=== PATIENT | female | born 1970 | race African-American/Black ===

== ENCOUNTER 2021-12-12 10:11 | Outpatient (CLI) | payer OTHER, SELFPAY ==
--- NOTE | ~2021-12-12 | US_ITS ---
EXAMINATION: US right upper quadrant DATE: 12/12/2021 11:14 INDICATION: Right upper quadrant abdominal pain TECHNIQUE: Multiple grayscale and Doppler ultrasound images of the abdomen were obtained. COMPARISON: Right upper quadrant ultrasound dated 02/02/[address] dated 06/05/2020 FINDINGS: The pancreatic head and body are normal in appearance. The pancreatic tail is not visualized. Visual ized proximal abdominal aorta and inferior vena cava are normal. Liver has normal echogenicity and co ntour, with a smooth surface. No liver lesion identified. No intrahepatic biliary duct dilation suspe cted. Portal venous flow was seen in the hepatopetal, normal direction and has normal Doppler wavefor m. The gallbladder is normal in appearance accounting for partially decompressed state. There is no c holelithiasis. The common bile duct measures 4 mm, which is normal. Sonographic Waldron sign was repor isa as negative by the fire control mechanic. Visualized portion of the right kidney demonstrates normal contou r and echogenicity with no hydronephrosis. IMPRESSION: 1. Normal right upper quadrant ultrasound. Reviewed, dictated and finalized at location B.
--- NOTE | ~2021-12-12 | XR_ITS ---
EXAMINATION: XR chest 2V DATE: 12/12/2021 10:37 INDICATION: Right lung nodule TECHNIQUE: PA and lateral views of the chest were obtained. COMPARISON: Chest radiograph dated 06/01/2010 FINDINGS: The lungs remain clear with no focal airspace opacities, pulmonary edema, pleural effusion or pneumot horax. The cardiomediastinal silhouette is normal. Vascular stenting at the proximal left upper arm. Bone graft cage for lower cervical anterior spinal fusion. Chronic mild anterior wedging at T7 and T8 . IMPRESSION: 1. Clear lungs. No acute cardiopulmonary disease. Reviewed, dictated and finalized at location B.
== END 2021-12-12 10:12 | disposition home or self-care (01) ==
LOC: ANHIMG 10:20
PROVIDERS: PCP Physician Assistant; Visit Provider Physician Assistant
DX: U07.1 COVID-19 (principal); M48.54XA Collapsed vertebra, not elsewhere classified, thoracic region, initial encounter for fracture; R10.11 Right upper quadrant pain
CPT/HCPCS: 71046; 76705